=== PATIENT | female | born 2000 ===

== ENCOUNTER 2023-09-08 07:59 | Inpatient (IN) | payer BC ==
[2023-09-08] MEDS ORDERED: Misoprostol 200 MCG Tab PO PRN (09:14)
[2023-09-08] MEDS ORDERED: Sodium Chloride 0.9% 2.5 ML Syringe FLUSH PRN (09:14)
[2023-09-08] MEDS ORDERED: Sodium Chloride 0.9% 20 ML SDV IV PRN (09:14)
[2023-09-08] MEDS ORDERED: Nalbuphine 10 MG/0.5 ML Syringe IVPUSH PRN (09:14)
[2023-09-08] MEDS ORDERED: Carboprost Tromethamine 250 MCG/1 mL Vial IM PRN (09:14)
[2023-09-08] MEDS ORDERED: Tranexamic Acid IN NACL,ISO-OS 1,000 MG in Premix Bag 1 BAG IV PRN ×2 (09:14)
[2023-09-08] MEDS ORDERED: Sodium Chloride 0.9% 10 ML Syringe FLUSH PRN (09:14)
[2023-09-08] MEDS ORDERED: Methylergonovine 0.2 MG/1 ML Amp IM PRN (09:14)
[2023-09-08] MEDS ORDERED: Lidocaine 1% 50 ML MDV INJECT PRN (09:14)
[2023-09-08] MEDS ORDERED: Butorphanol 1 MG/ML SDV IVPUSH PRN (09:14)
[2023-09-08] MEDS ORDERED: Ondansetron 4 MG/2 ML SDV IVPUSH PRN (09:14)
[2023-09-08] MEDS ORDERED: Water For Irrigation,Sterile 1,000 ML Container IRR PRN (09:14)
[2023-09-08] MEDS ORDERED: Oxytocin/0.9 % Sodium Chloride 30 UNIT/500 ML BAG IV SCH (09:15)
[2023-09-08 10:15] LABS: HEMATOCRIT 37.6 % (37.0-47.0); HEMOGLOBIN 13.3 g/dL (12.0-16.0); MEAN CORPUSCULAR HEMOGLOBIN 30.1 pg (28.0-32.0); MEAN CORPUSCULAR HGB CONC 35.4 g/dL (32.0-36.0); MEAN CORPUSCULAR VOLUME 85.1 fL (83.0-99.0); MEAN PLATELET VOLUME 9.5 fL (9.4-12.3); PLATELET COUNT,PLT 253 K/uL (150-400); RED BLOOD CELL COUNT 4.42 M/uL (4.10-5.30); WHITE BLOOD CELL COUNT,WBC 13.04 K/uL (3.9-11.3)
[2023-09-08] MEDS ORDERED: Phenylephrine HCl 0.5 MG/5 ML AMP IVPUSH PRN (11:37)
[2023-09-08] MEDS ORDERED: ePHEDrine 50 MG/ML SDV IVPUSH PRN ×2 (11:37)
[2023-09-08] MEDS ORDERED: Ropivacaine HCl/PF 400 MG in Premix Bag 1 BAG EPIDUR SCH (11:45)
[2023-09-08] MEDS: Lactated Ringers 1,000 ML IV SCH ×2 (13:20→16:52)
[2023-09-08] MEDS ORDERED: Bupivacaine 0.25% 10 ML SDV ONE (14:10)
[2023-09-08] MEDS ORDERED: Dexmedetomidine 200 MCG/2 ML SDV ONE (14:10)
[2023-09-08] MEDS ORDERED: oxyCODONE 5 MG Tab PO PRN (19:30)
[2023-09-08] MEDS ORDERED: Lanolin 100% Cream 7 GM Tube TOP PRN (19:30)
[2023-09-08] MEDS ORDERED: Ibuprofen 400 MG Tab PO PRN (19:30)
[2023-09-08] MEDS ORDERED: Bisacodyl 10 MG Supp RECTAL PRN (19:30)
[2023-09-08] MEDS ORDERED: Docusate Sodium 100 MG Cap PO PRN (19:30)
[2023-09-08] MEDS ORDERED: Acetaminophen 500 MG Tab PO PRN ×2 (19:30)
[2023-09-08 19:42] LABS: PH,UMBILICAL ARTERIAL 7.288 (7.18-7.38); PH,UMBILICAL VENOUS 7.399 (7.25-7.45)
[2023-09-08] MEDS: Ibuprofen 800 MG Tab PO PRN (21:13)
[2023-09-08] MEDS: Benzocaine/Menthol 20%-0.5% Spray 78 GM Cannister TOP PRN (23:00)
[2023-09-08] MEDS: Witch Hazel Medicated Pads 40/Jar TOP PRN (23:00)
[2023-09-09 06:20] LABS: HEMATOCRIT 33.3 % (37.0-47.0); HEMOGLOBIN 11.5 g/dL (12.0-16.0)
[2023-09-09] MEDS: Ibuprofen 800 MG Tab PO PRN ×3 (06:27→21:50)
[2023-09-09] MEDS: Benzocaine/Menthol 20%-0.5% Spray 78 GM Cannister TOP PRN (16:35)
[2023-09-09] MEDS: Witch Hazel Medicated Pads 40/Jar TOP PRN (16:36)
== END 2023-09-09 22:00 | disposition home or self-care (01) | DRG 560 ==
LOC: MW.OBCHECK 07:59 → MW.OB 08:00 → MW.OBCHECK 12:53 → MW.OB 12:56 → OBSVTOIN 19:01 → MW.OB 23:25
PROVIDERS: ADMIT Obstetrics & Gynecology; ATTEND Obstetrics & Gynecology
PROC: 10E0XZZ Delivery of Products of Conception, External Approach (ICD-10-PCS; principal; 2023-09-08)
PROC: 0KQM0ZZ Repair Perineum Muscle, Open Approach (ICD-10-PCS; 2023-09-08)
PROC: 3E0R3BZ Introduction of Anesthetic Agent into Spinal Canal, Percutaneous Approach (ICD-10-PCS; 2023-09-08)
PROC: 00HU33Z Insertion of Infusion Device into Spinal Canal, Percutaneous Approach (ICD-10-PCS; 2023-09-08)
PROC: 3E033VJ Introduction of Other Hormone into Peripheral Vein, Percutaneous Approach (ICD-10-PCS; 2023-09-08)
DX: O70.1 Second degree perineal laceration during delivery (principal); Z37.0 Single live birth; Z3A.39 39 weeks gestation of pregnancy
CPT/HCPCS: 36415; 51702; 59025; 59409; 82803; 85014; 85018; 85027; 86592; 86850; 86900; 86901; A9270-GY; J3490; J7120